=== PATIENT | male | born 1985 | race African-American/Black ===

== ENCOUNTER 2021-04-29 21:33 | Emergency (ER) | payer OTHER ==
[~2021-04-29] VITALS: Ht 177.8 cm; Wt 122.5 kg
[2021-04-29] MEDS ORDERED: CEPH500T PO (22:47)
[2021-04-29] MEDS ORDERED: SULF1TAB48 PO (22:47)
[2021-04-29 22:48] VITALS: BP 156/88
--- NOTE | 2021-04-29 22:57 | NUR ---
Patient discharged to home in stable condition. Written and verbal after care instructions given. Patient verbalizes understanding of instruction.
== END 2021-04-29 22:59 | disposition home or self-care (01) ==
LOC: ER 21:38
DX: L02.211 Cutaneous abscess of abdominal wall (principal); Z60.2 Problems related to living alone; Z79.899 Other long term (current) drug therapy